=== PATIENT | male | born 1955 | race Caucasian/White ===

== ENCOUNTER 2017-03-31 23:47 | Emergency (ER) | payer OTHER ==
[~2017-03-31] VITALS: Ht 182.9 cm; Wt 106.6 kg
[2017-03-31 23:48] VITALS: BP 140/88
[2017-04-01] MEDS ORDERED: NORCO 5-325 TA1 EACH PO (00:08)
[2017-04-01] MEDS ORDERED: CIPROFLOXACIN500 M1 PO (00:08)
== END 2017-04-01 00:42 | disposition home or self-care (01) ==
LOC: ER 23:47
DX: S91.332A Puncture wound without foreign body, left foot, initial encounter (principal); F17.210 Nicotine dependence, cigarettes, uncomplicated; Y99.8 Other external cause status; W22.8XXA Striking against or struck by other objects, initial encounter; Y93.89 Activity, other specified; Y92.89 Other specified places as the place of occurrence of the external cause; Z98.890 Other specified postprocedural states